=== PATIENT | female | born 1985 | race Caucasian/White ===

== ENCOUNTER 2017-11-21 08:28 | Emergency (ER) | payer OTHER ==
[2017-11-21] MEDS: LORAZEPAM 0.5 MG TAB PO (09:28)
[2017-11-21] MEDS: ONDANSETRON (ODT) 4 MG TAB ODT (09:28)
[2017-11-21] MEDS: KETOROLAC 30 MG INJ IM (09:35)
== END 2017-11-21 10:54 | disposition home or self-care (01) ==
LOC: E/R 08:28
DX: G89.11 Acute pain due to trauma (principal); T74.11XA Adult physical abuse, confirmed, initial encounter; F17.210 Nicotine dependence, cigarettes, uncomplicated; M54.2 Cervicalgia; H57.11 Ocular pain, right eye; R51 Headache; Y07.59 Other non-family member, perpetrator of maltreatment and neglect
CPT/HCPCS: 96372; 99284-25; J1885

== ENCOUNTER 2019-02-25 03:25 | Emergency (ER) | payer OTHER ==
[2019-02-25] MEDS: KETOROLAC 15 MG INJ IM (05:25)
[2019-02-25] MEDS: ONDANSETRON (ODT) 4 MG TAB ODT (05:25)
== END 2019-02-25 06:12 | disposition home or self-care (01) ==
LOC: E/R 06:12
DX: S09.90XA Unspecified injury of head, initial encounter (principal); S19.9XXA Unspecified injury of neck, initial encounter; J45.909 Unspecified asthma, uncomplicated; R51 Headache; Y04.1XXA Assault by human bite, initial encounter
CPT/HCPCS: 70450; 72125; 81025; 96372; 99285-25